=== PATIENT | male | born 1965 | race Caucasian/White ===

== ENCOUNTER 2022-03-02 03:02 | Emergency (ER) | payer OTHER ==
[~2022-03-02] VITALS: Ht 177.8 cm; Wt 89.0 kg
[2022-03-02] MEDS ORDERED: ADMELOG100 UNIT/1 IV (03:25)
[2022-03-02] MEDS ORDERED: K-TAB ER20 MEQ PO (03:26)
[2022-03-02] MEDS ORDERED: LASIX40 MG PO (03:27)
[2022-03-02] MEDS ORDERED: METOPROLOL SUCC25 MG PO (03:28)
[2022-03-02] MEDS ORDERED: LISINOPRIL2.5 MG PO (03:29)
[2022-03-02] MEDS ORDERED: SPIRONOLACTONE25 MG PO (03:30)
[2022-03-02] MEDS ORDERED: VITAMIN D-40010 MCG (03:31)
[2022-03-02] MEDS ORDERED: LASIX20 MG PO (05:05)
--- OUTSIDE RECORDS SUMMARY | 2022-03-02 05:36 | XMS ---
PreManage Notification: LIBBY SARAVIA Security Dock Associate Events No recent Security Events currently on file CRITERIA MET - [facility] - 3 Facilities in 90 Days - [facility] - 2 Visits in 30 Days CARE PROVIDERS CONSTANZA CASSIDY Stationary Engineer Supervisor/Transportation Analyst Current [facility] TEAM PHONE: [phone] Triston Thomas Telecommunications Specialist: Clinical Current PHONE: [phone] Rahel has no Care Guidelines for this patient. E.D. VISIT COUNT (12 MO.) [address] [place] [address] TOTAL 5 NOTE: Visits indicate total known visits. ED/UCC VISIT TRACKING (12 MO.) 03/02/2022 03:02 [facility] TYPE: Emergency COMPLAINT: - CHEST PAIN 02/08/2022 01:24 [facility] [place] TYPE: Emergency COMPLAINT: - LOWER ABD PAIN DIAGNOSES: - LOWER ABD PAIN 02/06/2022 18:42 [facility] [place] TYPE: Emergency DIAGNOSES: - WEAKNESS - Heart failure, unspecified 02/05/2022 18:42 [facility] [place] TYPE: Emergency DIAGNOSES: - Left lower quadrant pain - CHEST PAIN 01/19/2022 21:[facility] COMPLAINT: - shortness of breath DIAGNOSES: - Type 2 diabetes mellitus with hyperglycemia - Patient's other noncompliance with medication regimen - Fatigue - Shortness of Breath - Generalized anxiety disorder - Acute stress reaction - heart issues INPATIENT VISIT TRACKING (12 MO.) No inpatient visits to display in this time frame [email or web address]
--- NOTE | 2022-03-02 15:32 | EKG ---
[facility] [address] [place] [address] Signed Sinus tachycardia with premature atrial complexes Possible Left atrial enlargement Left axis deviation Minimal voltage criteria for LVH, may be normal variant ( Kenneth product ) Septal infarct , age undetermined Abnormal ECG No previous ECGs available Confirmed by JESUS MCKENZIE MD ([id number]) on 03/02/2022 3:32:17 PM Electronically Signed By: JESUS MCKENZIE MD 03/02/22 1532 PATIENT NAME: RANILIBBY FESTUS Electrocardiogram DATE OF : 63 PHYSICIAN: JESUS MCKENZIE MD REPORT #: [id number] REPORT IS CONFIDENTIAL AND NOT TO BE RELEASED WITHOUT AUTHORIZATION
== END 2022-03-02 05:20 | disposition home or self-care (01) ==
LOC: ED 03:02
DX: I50.9 Heart failure, unspecified (principal); I25.2 Old myocardial infarction; E11.9 Type 2 diabetes mellitus without complications; Z79.899 Other long term (current) drug therapy; Z79.4 Long term (current) use of insulin; Z20.822 Contact with and (suspected) exposure to COVID-19
CPT/HCPCS: 36415; 71045; 80053; 81001; 83735; 83880; 84484; 85025; 85379; 85610; 85730; 93005; 93010; 99285-25; U0003